=== PATIENT | female | born 1970 | race African-American/Black ===

== ENCOUNTER 2020-05-08 08:55 | Emergency (ER) | payer SELFPAY ==
[~2020-05-08] VITALS: Ht 149.9 cm; Wt 79.4 kg
--- NOTE | 2020-05-08 09:38 | NUR ---
Patient discharged to home in stable condition. Written and verbal after care instructions given. Patient verbalizes understanding of instructions. Stressed follow up or return to ER for worsening s/s.
== END 2020-05-08 09:39 | disposition home or self-care (01) ==
LOC: ER 08:55
DX: J20.9 Acute bronchitis, unspecified (principal); Z88.9 Allergy status to unspecified drugs, medicaments and biological substances; Z87.09 Personal history of other diseases of the respiratory system
CPT/HCPCS: A4663